=== PATIENT | male | born 1990 | race Two or more races ===

== ENCOUNTER 2016-08-30 15:36 | Emergency (ER) | payer SELFPAY ==
--- NOTE | 2016-08-30 16:36 | RAD ---
CHEST - 2 VIEWS COMPARISON: Chest 2 views, 08/30/2016 HISTORY: Headache and cough and fever for one week. FINDINGS: Views: Frontal and lateral chest Lungs: Normal Heart and vessels: Normal Trachea and bronchi: Normal Mediastinum and jayson: Normal Costophrenic sulci: Normal Chest wall and bones: Normal. Upper abdomen: Normal. IMPRESSION: Negative 2 view chest.
[2016-08-30] MEDS ORDERED: IBUPROFEN 600 MG TABLET ONE (17:21)
== END 2016-08-30 17:32 | disposition home or self-care (01) ==
LOC: ED 15:36
DX: R05 Cough (principal); B34.9 Viral infection, unspecified; F17.210 Nicotine dependence, cigarettes, uncomplicated
CPT/HCPCS: 71020; 87804; 99283 ×2; A9270